=== PATIENT | male | born 1980 | race Caucasian/White ===

== ENCOUNTER 2020-04-18 12:17 | Emergency (ER) | payer SELFPAY ==
[~2020-04-18] VITALS: Ht 170.2 cm; Wt 104.3 kg
[2020-04-18 12:41] VITALS: Ht 170.2 cm; Wt 104.3 kg
[2020-04-18 14:57] VITALS: BP 154/97
== END 2020-04-18 14:57 | disposition home or self-care (01) ==
LOC: ED 12:17
DX: B34.9 Viral infection, unspecified (principal); Z20.828 Contact with and (suspected) exposure to other viral communicable diseases
CPT/HCPCS: U0003-CS